=== PATIENT | female | born 1980 | race Hispanic/Latino ===

== ENCOUNTER 2021-11-16 15:13 | Observation (INO) | payer BC ==
[~2021-11-16] VITALS: Ht 172.7 cm; Wt 95.7 kg
[2021-11-16 15:43] LABS: BASOPHILS % (AUTO) 0.5 % (0.0-5.0); EOSINOPHILS % (AUTO) 0.1 % (0.0-8.0); HEMATOCRIT 24.4 % (36-48); LYMPHOCYTES % (AUTO) 6.7 % (21.0-51.0); MEAN CORPUSCULAR HEMOGLOBIN 15.2 pg (27.0-33.0); MEAN CORPUSCULAR HGB CONC 26.2 g/dL (32.0-36.0); MEAN CORPUSCULAR VOLUME 57.8 fL (79-99); MONOCYTES % (AUTO) 3.9 % (3.0-13.0); NEUTROPHILS % (AUTO) 88.5 % (40.0-77.0); PLATELET COUNT (AUTO) 382 K/uL (130-400); RED BLOOD CELL COUNT(AUTO) 4.22 MIL/uL (4.00-5.50); RED CELL DISTRIBUTION WIDTH 19.9 % (11.0-15.5); WHITE BLOOD COUNT (AUTO) 11.7 K/uL (4.8-10.8)
[2021-11-16 15:51] LABS: APPEARANCE,URINE Cloudy (CLEAR); BILIRUBIN,URINE Negative (NEGATIVE); COLOR,URINE Yellow (YELLOW); GLUCOSE, URINE (UA) Negative (NEGATIVE); KETONES,URINE Negative (NEGATIVE); LEUKOCYTE ESTERASE ,URINE Large (NEGATIVE); NITRATE,URINE Negative (NEGATIVE); OCCULT BLOOD,URINE Small (NEGATIVE); PROTEIN,URINE POS 2+ mg/dL (NEGATIVE); UROBILINOGEN,URINE 0.2 mg/dL (0.2-1.0)
[2021-11-16 15:53] LABS: CREATININE 0.8 mg/dL (0.5-1.5); POTASSIUM 3.4 mmol/L (3.5-5.1)
[2021-11-16 15:58] LABS: ALBUMIN 3.9 g/dL (3.5-5.0); TOTAL PROTEIN, SERUM 8.2 g/dL (6.0-8.3)
[2021-11-16 16:03] LABS: HCG,QUALITATIVE URINE NEGATIVE (NEGATIVE)
[2021-11-16 16:17] LABS: BACTERIA,URINE Few /HPF (None Seen); SQUAMOUS EPITHELIAL CELL,UR Rare /HPF (0-2); WBC,URINE 26-50 /HPF (0-1)
[2021-11-16] MEDS ORDERED: ONDANSETRON 4MG INJ IVP ONE (16:30)
[2021-11-16] MEDS ORDERED: CEFTRIAXONE 1G VIAL IVP ONE (16:30)
[2021-11-16] MEDS ORDERED: 0.9%NACL 1000ML 1,000 ML IV ONE (16:30)
[2021-11-16] MEDS ORDERED: MORPHINE 4 MG SYG IVP ONE (16:30)
[2021-11-16] MEDS ORDERED: IOHEXOL 350 MG/ML 100ML INFUS..BTL IV ONE (16:46)
[2021-11-16] MEDS ORDERED: GUAIFENESIN-DM 200/20 MG 10 ML PO PRN (19:30)
[2021-11-16] MEDS ORDERED: ZOLPIDEM TARTRATE 5 MG TAB PO PRN (19:30)
[2021-11-16] MEDS ORDERED: MAG/ALUM/SIMETH 30 ML UDCUP PO PRN (19:30)
[2021-11-16] MEDS ORDERED: ACETAMINOPHEN 325 MG TAB PO PRN ×2 (19:30)
[2021-11-16] MEDS ORDERED: HYDROCODONE/ACETAMINOPHEN 5/325 MG TAB PO PRN (19:30)
[2021-11-16] MEDS ORDERED: KCL 20 MEQ ERTAB PO ONE (19:30)
[2021-11-16] MEDS ORDERED: ONDANSETRON 4MG INJ IV PRN (19:30)
[2021-11-16] MEDS ORDERED: CEFTRIAXONE 1G VIAL IV SCH (19:30)
[2021-11-16] MEDS ORDERED: DIPHENHYDRAMINE HCL 25 MG CAPSULE PO PRN (19:30)
[2021-11-16] MEDS ORDERED: LACTULOSE 20 GM/30 ML UDCUP PO PRN (19:30)
[2021-11-16] MEDS ORDERED: MORPHINE 4 MG SYG IV PRN (19:30)
[2021-11-16 19:42] LABS: RETICULOCYTE % (AUTO) 2.01 % (0.42-2.23)
[2021-11-16 20:39] LABS: % IRON SATURATION 2.2 % (22-44)
[2021-11-16 22:00] VITALS: BP 150/71
[2021-11-16] MEDS: FAMOTIDINE 20MG TAB PO SCH (23:07)
[2021-11-17] VITALS: BP 135/71
[2021-11-17 04:00] VITALS: BP 124/63
[2021-11-17 04:20] LABS: CREATININE 0.7 mg/dL (0.5-1.5); POTASSIUM 3.2 mmol/L (3.5-5.1)
[2021-11-17 04:23] LABS: HEMATOCRIT 23.4 % (36-48); MEAN CORPUSCULAR HEMOGLOBIN 16.6 pg (27.0-33.0); MEAN CORPUSCULAR HGB CONC 28.2 g/dL (32.0-36.0); MEAN CORPUSCULAR VOLUME 58.9 fL (79-99); RED BLOOD CELL COUNT(AUTO) 3.97 MIL/uL (4.00-5.50); RED CELL DISTRIBUTION WIDTH 21.8 % (11.0-15.5); WHITE BLOOD COUNT (AUTO) 9.4 K/uL (4.8-10.8)
[2021-11-17] MEDS ORDERED: LIDOCAINE HCL-MPF 1% 2ML VIAL IJ PRN (05:00)
[2021-11-17] MEDS ORDERED: POTASSIUM CHLORIDE 20MEQ/100ML 100 ML IV PRN (05:00)
[2021-11-17] MEDS ORDERED: POTASSIUM CHLORIDE 10% ELIXIR 20 MEQ/15 ML UDCUP PO PRN (05:00)
[2021-11-17] MEDS: KCL 20 MEQ ERTAB PO PRN ×2 (05:35→09:53)
[2021-11-17 07:00] VITALS: BP 138/76
[2021-11-17] MEDS ORDERED: CEFTRIAXONE 1G VIAL IVP SCH (08:30)
[2021-11-17] MEDS: FAMOTIDINE 20MG TAB PO SCH (09:10)
[2021-11-17 11:00] VITALS: BP 118/69
[2021-11-17] MEDS ORDERED: AMOX-426 PO (11:40)
[2021-11-17] MEDS ORDERED: FERR324T4 PO (11:40)
[2021-11-17] MEDS ORDERED: POTASSIUM CHLORIDE 10% ELIXIR 20 MEQ/15 ML UDCUP PO ONE (12:00)
[2021-11-17] MEDS ORDERED: IRON SUCROSE COMPLEX 300 MG in 0.9% NACL 250ML 250 ML IV SCH (12:00)
[2021-11-17] MEDS ORDERED: COMPOUND IV MISC 1 EACH IVSOLN MISC PRN (12:00)
[2021-11-17 15:00] VITALS: BP 132/83
== END 2021-11-17 16:00 | disposition home or self-care (01) ==
LOC: EDH 15:13 → OBSVTOIN 18:05 → INTOOBSV 18:05 → EDHIP 18:05 → 4CH 22:00
PROVIDERS: ADMIT Hospitalist; ATTEND Hospitalist
DX: D50.9 Iron deficiency anemia, unspecified (principal); N92.0 Excessive and frequent menstruation with regular cycle; N39.0 Urinary tract infection, site not specified; E66.9 Obesity, unspecified; Z68.32 Body mass index [BMI] 32.0-32.9, adult; Z79.899 Other long term (current) drug therapy
CPT/HCPCS: 96361; 96375; 36430 ×2; 99285; 80053; 82728; 85025; 86850; 86900; 86901; 86923 ×3; 87077; 87088; 87186; 82607; 81001; 81025; 36415 ×2; 74177; 96365; 96366; 80048; 85027; 85014; 85018; 82948 ×2; G0378 ×16; P9016 ×2; J7030; J0696; J2405; J2270; Q9967; J1756; J7050